=== PATIENT | male | born 1950 | race Caucasian/White ===

== ENCOUNTER 2017-02-25 14:49 | Emergency (ER) | payer OTHER ==
[~2017-02-25] VITALS: Wt 78.5 kg
[~2017-02-25 14:49] MED LIST: ASPIRIN81 M1 PO; ATIVAN1 MG PO; ATORVASTATIN CA20 M1 PO; BUSPAR5 MG PO; CHOLESTEROL MED; FISH OIL 1,2001 EAC1 PO; HYDRODIURIL25 MG PO; LOPRESSOR25 MG PO; LOTRIMIN AF1% TP; METFOMIN HYDRO850 MG PO; METFORMIN500 MG PO; METFORMIN850 MG PO; SERTRALINE HYDR50 MG PO; WAL-SOM50 MG PO
== END 2017-02-25 15:09 | disposition home or self-care (01) ==
LOC: ED 14:49
DX: M70.22 Olecranon bursitis, left elbow (principal); R60.1 Generalized edema; F41.8 Other specified anxiety disorders; I10 Essential (primary) hypertension; I50.9 Heart failure, unspecified; Z79.899 Other long term (current) drug therapy; Z79.82 Long term (current) use of aspirin; Z88.1 Allergy status to other antibiotic agents; Z88.6 Allergy status to analgesic agent; Z88.8 Allergy status to other drugs, medicaments and biological substances

== ENCOUNTER → 2022-07-29 | Outpatient (CLI) | payer MEDICARE, MEDICAID | END | disposition home or self-care (01) | LOC: CT 10:49 | PROVIDERS: ATTEND Internal Medicine | DX: H05.241 Constant exophthalmos, right eye (principal) ==

== ENCOUNTER → 2022-08-14 | Outpatient (CLI) | payer MEDICARE, MEDICAID | END | disposition home or self-care (01) | LOC: CT 00:17 | PROVIDERS: ATTEND Internal Medicine Hematology & Oncology | DX: K76.0 Fatty (change of) liver, not elsewhere classified (principal); R16.1 Splenomegaly, not elsewhere classified; H05.20 Unspecified exophthalmos ==

== ENCOUNTER 2023-08-22 14:16 | Emergency (ER) | payer MEDICARE ==
[~2023-08-22] VITALS: Ht 175.2 cm; Wt 71.7 kg
[~2023-08-22 14:16] MED LIST changes: +AKWA TEARS 15 M15 ML OPH; +FARXIGA5 M1 PO; +FIBERCON625 MG PO; +FISH OIL 1,201200 MG PO; +HYDROCHLOROTH12.5 M2 PO; +LIDOCAINE PAIN1 EACH T; +MELATONIN3 MG PO; +METFORMIN HYDR750 MG PO; +OMEPRAZOLE40 MG PO; +POLYVINYL ALCOH15 ML OPH; +SENNA8.6 MG PO; +SEROQUEL25 MG PO; +VITAMIN B-121000 MC2 PO
[2023-08-22] MEDS ORDERED: AMOX-CLAV 875-1 EACH PO (15:21)
== END 2023-08-22 15:31 | disposition home or self-care (01) ==
LOC: ED 14:16
DX: H66.91 Otitis media, unspecified, right ear (principal); I10 Essential (primary) hypertension; E11.9 Type 2 diabetes mellitus without complications; Z88.8 Allergy status to other drugs, medicaments and biological substances; Z98.890 Other specified postprocedural states

== ENCOUNTER 2025-02-24 12:12 | Emergency (ER) | payer MEDICARE ==
[~2025-02-24] VITALS: Ht 167.6 cm; Wt 74.8 kg
[~2025-02-24 12:12] MED LIST changes: +AMOX-CLAV 875-1 EACH PO
== END 2025-02-24 13:29 | disposition home or self-care (01) ==
LOC: ED 12:12
DX: R32 Unspecified urinary incontinence (principal); F41.9 Anxiety disorder, unspecified; F32.A Depression, unspecified; E11.9 Type 2 diabetes mellitus without complications; E78.5 Hyperlipidemia, unspecified; I11.0 Hypertensive heart disease with heart failure; I50.9 Heart failure, unspecified; Z98.890 Other specified postprocedural states; Z88.8 Allergy status to other drugs, medicaments and biological substances; Z79.82 Long term (current) use of aspirin; Z79.899 Other long term (current) drug therapy